=== PATIENT | male | born 1955 | race Caucasian/White ===

== ENCOUNTER 2018-04-02 15:35 | Emergency (ER) | payer MEDICAID, OTHER ==
--- NOTE | 2018-04-02 15:48 | ED ---
Throat Pain/Nasal Congestion - HPI Summary HPI Summary: This patient is a 63 year old M presenting to [facility] c/o possible left ear infection with hx of recurrent ear infections. He states the pain began 3 days ago. The patient rates the pain 5/10 in severity. Patient denies fever, BRAND, sore throat, and dental pain. NKDA. No hx of DM. - History of Current Complaint Chief Complaint: EDEarPain Time Seen by Provider: 04/02/18 15:43 Hx Obtained From: Patient Onset/Duration: Lasting Days, Still Present Severity: Moderate Associated Signs And Symptoms: Positive: Negative - fever - Allergies/Home Medications Allergies/Adverse Reactions: Allergies Allergy/AdvReac Type Severity Reaction Status Date / Time No Known Allergies Allergy Verified 04/02/18 15:47 PMH/Surg Hx/FS Hx/Imm Hx Endocrine/Hematology History: Denies: Hx Diabetes, Hx Systemic Lupus Erythematosus, Hx Anemia Cardiovascular History: Denies: Hx Cardiomegaly, Hx Congenital Heart Disease Neurological History: Denies: Hx CVA Infectious Disease History: No Infectious Disease History: Denies: Traveled Outside the [place] in Last 30 Days - Family History Known Family History: Negative: Renal Disease, Respiratory Disease, Seizure Disorder, Blood Disorder - Social History Alcohol Use: None Substance Use Type: Reports: None Smoking Status (MU): Former Smoker Review of Systems Negative: Fever Positive: Ear Ache. Negative: Dental Pain, Sore Throat Negative: Headache All Other Systems Reviewed And Are Negative: Yes Physical Exam - Summary Physical Exam Summary: GENERAL: Patient is a well-developed and nourished M who is lying comfortable in the stretcher. Patient is not in any acute respiratory distress. HEAD AND FACE: Normocephalic EYES: PERRLA, EOMI x 2. EARS: Hearing grossly intact, no pain with traction of the pinnae. The left ear is red and TM in intact. MOUTH: Oropharynx within normal limits. NECK: Supple, trachea is midline, no adenopathy, no JVD, no carotid bruit. CHEST: Symmetric, no tenderness at palpation LUNGS: Clear to auscultation bilaterally. No wheezing or crackles. CVS: Regular rate and rhythm, S1 and S2 present, no murmurs or gallops appreciated. ABDOMEN: Soft, non-tender. Bowel sounds are normal. No abdominal abnormal pulsations. EXTREMITIES: Full ROM in all major joints, no edema, no cyanosis or clubbing. NEURO: Alert and oriented x 3. No acute neurological deficits. Speech is normal and follows commands. SKIN: Dry and warm Triage Information Reviewed: Yes Vital Signs On Initial Exam: Initial Vitals Temp Pulse Resp BP Pulse Ox 97.5 F 62 19 144/88 98 04/02/18 15:38 04/02/18 15:38 04/02/18 15:38 04/02/18 15:38 04/02/18 15:38 Vital Signs Reviewed: Yes Diagnostics - Vital Signs Vital Signs Temp Pulse Resp BP Pulse Ox 04/02/18 15:38 97.5 F 62 19 144/88 98 - Laboratory Lab Statement: Any lab studies that have been ordered have been reviewed, and results considered in the medical decision making process. EENT Course/Dx - Course Assessment/Plan: This patient is a 63 year old M presenting to [facility] [place] [place] c/o possible left ear infection with hx of recurrent ear infections. Examination consistent with otitis media he will be sent home on Augmentin. Given return precautions. The patient is agreeable with this plan. - Diagnoses Provider Diagnoses: Otitis media Discharge - Sign-Out/Discharge Documenting (check all that apply): Patient Departure - Discharge Plan Condition: Stable Disposition: HOME Prescriptions: Amoxicillin/Clavulanate TAB* [Augmentin TAB 875*] 875 mg PO BID #20 tab Ibuprofen TAB* [Motrin TAB* 800 MG] 800 mg PO Q6H #24 tab Patient Education Materials: Serous Otitis Media (ED) Referrals: [facility] [Outside] [facility] [place] [place] [facility] [Outside] Additional Instructions: Follow up with your primary care physician in 1-3 days. RETURN TO THE EMERGENCY DEPARTMENT FOR CHANGING OR WORSENING SYMPTOMS. - Billing Disposition and Condition Condition: STABLE Disposition: Home - Attestation Statements Document Initiated by Scribe: Yes Documenting Scribe: Jean-Claude Yancey Provider For Whom Scribe is Documenting (Include Credential): Bakari Putnam MD Scribe Attestation: Jean-Claude Nur scribed for Bakari Putnam MD on 04/02/18 at 1739. Scribe Documentation Reviewed: Yes Provider Attestation: The documentation as recorded by the Jean-Claude ro accurately reflects the service I personally performed and the decisions made by Bakari blevins MD Status of Scribe Document: Viewed
[2018-04-02] MEDS ORDERED: Amoxicillin/Clavulanate TAB* 875 MG PO ONE (15:55)
[2018-04-02] MEDS ORDERED: Ibuprofen TAB* 400 MG PO ONE (15:55)
[2018-04-02 16:07] VITALS: BP 132/71
== END 2018-04-02 16:06 | disposition home or self-care (01) ==
LOC: ED 15:35
DX: H66.92 Otitis media, unspecified, left ear (principal); Z87.891 Personal history of nicotine dependence
CPT/HCPCS: 99282; A9270-GY